=== PATIENT | female | born 1990 | race Hispanic/Latino ===

== ENCOUNTER 2021-07-17 13:09 | Emergency (ER) | payer OTHER ==
[~2021-07-17] VITALS: Ht 154.9 cm; Wt 83.5 kg
[2021-07-17] MEDS ORDERED: ONDANSETRON HCL INJ 2MG/ML 2ML 2 MG/ML VIAL IV STA (14:07)
[2021-07-17] MEDS ORDERED: CIPRO500 MG PO (15:05)
[2021-07-17] MEDS ORDERED: ONDANSETRON ODT4 MG PO (15:05)
== END 2021-07-17 15:40 | disposition home or self-care (01) ==
LOC: FSED 14:02
DX: R11.2 Nausea with vomiting, unspecified (principal); N39.0 Urinary tract infection, site not specified
CPT/HCPCS: 80048; 80076; 81003; 81025; 85025; 99283; J2405